=== PATIENT | male | born 1985 | race Caucasian/White ===

== ENCOUNTER 2016-09-28 23:24 | Emergency (ER) | payer OTHER ==
[2016-09-28 23:29] VITALS: BP 144/81; PULSE 71; TEMP 99
--- NOTE | 2016-09-28 23:44 | ED PDOC ---
Arrival/HPI - General Chief Complaint: Back Pain Time Seen by Provider: 09/28/16 23:31 Historian: Patient - History of Present Illness Narrative History of Present Illness (Text): 09/28/16 23:44 Kathie Kowalski is a 31 year old male, with no significant past medical history , who presents to the Emergency department complaining of right flank pain for the past 2 weeks. Patient describes pain as a burning sensation. Patient denies any fever, chills, chest pain, shortness of breath, nausea, vomiting, diarrhea, urinary symptoms, neck pain, headache, dizziness, or any other complaints. Symptom Onset: Gradual Symptom Course: Unchanged Activities at Onset: Rest, Light Context: Home Past Medical History - Provider Review Nursing Documentation Reviewed: Yes - Pulmonary Hx Respiratory Disorders: Yes Hx Asthma: Yes - Psychiatric Hx Substance Use: No Family/Social History - Physician Review Nursing Documentation Reviewed: Yes Family/Social History: Unknown Family HX Smoking Status: Never Smoked Hx Alcohol Use: No Hx Substance Use: No Allergies/Home Meds Allergies/Adverse Reactions: Allergies No Known Allergies Allergy (Verified 09/28/16 23:28) Home Medications: Home Meds Medication Instructions Recorded Confirmed Albuterol HFA [Ventolin HFA 90 2 puff IH PRN PRN 09/28/16 09/28/16 mcg/actuation (8 g)] Review of Systems - Physician Review All systems were reviewed & negative as marked: Yes - Review of Systems Constitutional: Normal. absent: Fevers Eyes: Normal ENT: Normal Respiratory: Normal. absent: SOB, Cough Cardiovascular: Normal. absent: Chest Pain Gastrointestinal: Abdominal Pain. absent: Diarrhea, Nausea, Vomiting Genitourinary Male: Normal. absent: Dysuria, Frequency, Hematuria, Urinary Output Changes Musculoskeletal: Back Pain (+right flank pain). absent: Neck Pain Skin: Normal. absent: Rash Neurological: Normal. absent: Headache, Dizziness Endocrine: Normal Hemo/Lymphatic: Normal Psychiatric: Normal Physical Exam Vital Signs Reviewed: Yes Vital Signs Temp Pulse Resp BP Pulse Ox 09/29/16 01:35 18 97 09/28/16 23:29 99 F 71 16 144/81 98 Temperature: Afebrile Blood Pressure: Normal Pulse: Regular Respiratory Rate: Normal Appearance: Positive for: Well-Appearing, Non-Toxic, Comfortable Pain Distress: None Mental Status: Positive for: Alert and Oriented X 3 - Systems Exam Head: Present: Atraumatic, Normocephalic Pupils: Present: PERRL Extroacular Muscles: Present: EOMI Conjunctiva: Present: Normal Mouth: Present: Moist Mucous Membranes Neck: Present: Normal Range of Motion Respiratory/Chest: Present: Clear to Auscultation, Good Air Exchange. No: Respiratory Distress, Accessory Muscle Use Cardiovascular: Present: Regular Rate and Rhythm, Normal S1, S2. No: Murmurs Abdomen: Present: Normal Bowel Sounds. No: Tenderness, Distention, Peritoneal Signs Back: Present: Normal Inspection Upper Extremity: Present: Normal Inspection. No: Cyanosis, Edema Lower Extremity: Present: Normal Inspection. No: Edema Neurological: Present: GCS=15, CN II-XII Intact, Speech Normal Skin: Present: Warm, Dry, Normal Color. No: Rashes Psychiatric: Present: Alert, Oriented x 3, Normal Insight, Normal Concentration Medical Decision Making ED Course and Treatment: 09/28/16 23:44 Impression: 31 year old male complaining of right flank pain x2 weeks. Differential Diagnosis included but are not limited to: flank pain vs. renal colic Plan: -- CT Abdomen and Pelvis w/o contrast -- Labs -- UA -- Reassess and disposition Progress Notes: 09/29/16 00:57 Reviewed radiology, CT Abdomen and Pelvis shows: No acute findings. 09/29/16 01:11 On reevaluation the patient feels better and is in no acute distress. I have discussed the results and plan with the patient, who expresses understanding. Patient given the opportunity to ask question, all questions were answered and there is agreement with the plan to discharge the patient home. Patient is stable for discharge. Patient was instructed to follow up with physician/clinic in 1-2 days or return if symptoms persist/worsen or new concerning symptoms arise. - Lab Interpretations Lab Results: 09/28/16 23:58 09/28/16 23:58 Lab Results 09/29/16 00:11: Urine Color Yellow, Urine Appearance Clear, Urine pH 6.0, Ur Specific [place] <= 1.005, Urine Protein Negative, Urine Glucose (UA) Negative, Urine Ketones Negative, Urine Blood Negative, Urine Nitrate Negative, Urine Bilirubin Negative, Urine Urobilinogen 0.2, Ur Leukocyte Esterase Negative 09/28/16 23:58: Sodium 140, Potassium 3.9, Chloride 105, Carbon Dioxide 23, Anion Gap 16, BUN 12, Creatinine 0.9, Est GFR ( Amer) > 60, Est GFR (Non- Af Amer) > 60, Random Glucose 86, Calcium 9.0, Total Bilirubin 0.5, AST 29, ALT 34, Alkaline Phosphatase 70, Total Protein 7.4, Albumin 4.6, Globulin 2.8, Albumin/Globulin Ratio 1.6 09/28/16 23:58: WBC 6.5, RBC 4.97, Hgb 14.6, Hct 40.5 L, MCV 81.5, MCH 29.4, MCHC 36.0, RDW 12.1, Plt Count 184, MPV 11.1 H, Gran % 45.5 L, Lymph % (Auto) 37.4 H, [place] % (Auto) 6.0, Eos % (Auto) 10.6 H, Baso % (Auto) 0.5, Gran # 2.98, Lymph # 2.4, [place] # 0.4, Eos # 0.7, Baso # 0.03 I have reviewed the lab results: Yes - RAD Interpretation Narrative RAD Interpretations (Text): CT Abdomen and Pelvis shows: Limitations: Evaluation is limited due to lack of IV contrast. Lower thorax: No acute findings. ABDOMEN: Liver: The liver is slightly heterogenous in appearance. Gallbladder and bile ducts: Unremarkable. No calcified stones. No ductal dilation. Pancreas: Pancreas limited. No ductal dilation. Spleen: Unremarkable. No splenomegaly. Adrenals: Unremarkable. No mass. Kidneys and ureters: Unremarkable. No obstructing stones. No hydronephrosis. Stomach and bowel: Bowel evaluation is limited due to lack of distention. No mucosal thickening. Appendix: No findings to suggest acute appendicitis. PELVIS: Bladder: The bladder wall is slightly thickened. No stones. Reproductive: Unremarkable as visualized. ABDOMEN and PELVIS: Intraperitoneal space: Unremarkable. No free air. No significant fluid collection. Bones/joints: No acute fracture. No dislocation. Soft tissues: Unremarkable. Vasculature: Unremarkable. No abdominal aortic aneurysm. Lymph nodes: Unremarkable. No enlarged lymph nodes. IMPRESSION: No acute findings. Radiology Orders: 09/28/16 23:51 ABD & PELVIS W/O PO OR IV CONT [CT] Stat Vocational Guidance Counselor: Radiologist - Scribe Statement The provider has reviewed the documentation as recorded by the Salome Lundy Provider Scribe Attestation: All medical record entries made by the Scribe were at my direction and personally dictated by me. I have reviewed the chart and agree that the record accurately reflects my personal performance of the history, physical exam, medical decision making, and the department course for this patient. I have also personally directed, reviewed, and agree with the discharge instructions and disposition. Disposition/Present on Arrival - Present on Arrival Any Indicators Present on Arrival: No History of DVT/PE: No History of Uncontrolled Diabetes: No Urinary Catheter: No History of Decub. Ulcer: No History Surgical Site Infection Following: None - Disposition Have Diagnosis and Disposition been Completed?: Yes Diagnosis: Right flank pain Disposition: HOME/ ROUTINE Disposition Time: 01:10 Condition: GOOD Discharge Instructions (ExitCare): Flank Pain (ED) Prescriptions: Cyclobenzaprine [Cyclobenzaprine HCl] 10 mg PO TID #21 tab Forms: [facility] (Azeri)
[2016-09-29 00:08] LABS: BASO # 0.03 K/mm3 (0.0-2.0); BASO % 0.5 % (0.0-3.0); EOS # 0.7 (0.0-0.7); EOS % 10.6 % (1.5-5.0); GRAN # 2.98 (1.4-6.5); GRAN % 45.5 % (50.0-68.0); HEMATOCRIT 40.5 % (42.0-52.0); LYMPH # 2.4 (1.2-3.4); LYMPH % 37.4 % (22.0-35.0); MEAN CELL VOLUME 81.5 fl (80.0-105.0); MEAN CORPUSCULAR HEMOGLOBIN 29.4 pg (25.0-35.0); MEAN PLATELET VOLUME 11.1 fl (7.0-11.0); MONO # 0.4 (0.1-0.6); RED CELL DISTRIBUTION WIDTH 12.1 % (11.5-14.5); WHITE BLOOD COUNT 6.5 10^3/ul (4.5-11.0)
[2016-09-29 00:17] LABS: ALB/GLOB RATIO 1.6 (1.1-1.8); ALKALINE PHOSPHATASE 70 U/L (38-133); ALT/SGPT 34 U/L (7-56); AST/SGOT 29 U/L (15-59); BILIRUBIN,TOTAL 0.5 mg/dL (0.2-1.3); CARBON DIOXIDE 23 mmol/L (21-33); CHLORIDE 105 mmol/L (98-107); GFR AFRICAN-AMERICAN > 60; GLUCOSE,RANDOM 86 mg/dL (70-110); POTASSIUM 3.9 mmol/L (3.6-5.0); SODIUM 140 mmol/L (132-148); TOTAL PROTEIN 7.4 g/dL (5.8-8.3)
[2016-09-29 00:18] LABS: BLOOD UREA NITROGEN 12 mg/dL (7-21)
[2016-09-29 00:24] LABS: URINE BILIRUBIN NEGATIVE (NEGATIVE); URINE BLOOD NEGATIVE (NEGATIVE); URINE GLUCOSE (UA) NEGATIVE (NEGATIVE); URINE KETONE NEGATIVE (NEGATIVE); URINE LEUKOCYTE ESTERASE NEGATIVE Leu/uL (NEGATIVE); URINE PROTEIN NEGATIVE mg/dL (<30 mg/dL); URINE UROBILINOGEN 0.2 E.U./dL (<1 E.U./dL)
[2016-09-29 00:28] LABS: URINE APPEARANCE CLEAR (CLEAR); URINE COLOR YELLOW (YELLOW)
[2016-09-29 01:50] VITALS: RESP 18; O2SAT 97
--- NOTE | 2016-09-29 07:26 | CT ---
PROCEDURE: CT Abdomen and Pelvis without intravenous contrast HISTORY: rt flank pain COMPARISON: None. TECHNIQUE: Helical CT of the abdomen pelvis was performed without oral or intravenous contrast as per referring physician request. Contrast Dose: 0 Radiation dose: Total exam DLP = 366 mGy-cm. This CT exam was performed using one or more of the following dose reduction techniques: Automated exposure control, adjustment of the mA and/or kV according to patient size, and/or use of iterative reconstruction technique. FINDINGS: LOWER THORAX: Unremarkable. LIVER: Unremarkable. No gross lesion or ductal dilatation. GALLBLADDER AND BILE DUCTS: Unremarkable. PANCREAS: Unremarkable. No gross lesion or ductal dilatation. SPLEEN: Unremarkable. ADRENALS: Unremarkable. No mass. KIDNEYS AND URETERS: Unremarkable. No hydronephrosis. No perinephric reaction or radiodense urolithiasis is appreciated bilaterally. No definitive contour abnormality identified. VASCULATURE: Unremarkable. No aortic aneurysm. BOWEL: Unremarkable. A moderate amount of retained fecal material identified in the distal small bowel without definite bowel obstruction pattern appreciated this time. Clinical significance this finding is unclear. The lack of oral contrast material limits evaluation of bowel. No gross mural thickening. APPENDIX: Unremarkable. Normal appendix. PERITONEUM: Unremarkable. No free fluid. No free air. LYMPH NODES: Unremarkable. No enlarged lymph nodes. BLADDER: Unremarkable. REPRODUCTIVE: Unremarkable. BONES: No acute fracture. OTHER FINDINGS: None. IMPRESSION: Unremarkable non contrast enhanced CT of the abdomen and pelvis. No definitive acute findings as discussed above. This does persist or worsen consider contrast abdomen pelvis CT examination with oral and intravenous contrast. Concur with V rad preliminary report submitted 09/29/2016.
== END 2016-09-29 01:35 | disposition home or self-care (01) ==
LOC: ED 23:24
DX: R10.9 Unspecified abdominal pain (principal)